=== PATIENT | female | born 1975 | race Two or more races ===

== ENCOUNTER 2022-12-17 10:06 | Emergency (ER) | payer BC, OTHER ==
[2022-12-17 10:20] VITALS: BP 121/75; BMI 26.2
[2022-12-17 11:09] VITALS: PULSE 93; RESP 14; TEMP 98.3
[2022-12-17 11:48] LABS: BASO % 0.1 % (0-2.0); EOS % 1.6 % (0-4.5); HEMATOCRIT 37.2 % (32.4-45.2); HEMOGLOBIN 12.5 GM/dL (10.7-15.3); LYMPH % 19.2 % (8-40); MCH 29.1 pg (25.7-33.7); MCHC 33.7 g/dl (32.0-36.0); MEAN CELL VOLUME 86.5 fl (80-96); MEAN PLT VOLUME 8.5 fl (7.5-11.1); MONO % 4.5 % (3.8-10.2); NEUT % 74.6 % (42.8-82.8); PLATELET COUNT 254 10^3/uL (134-434); RBC 4.31 M/mm3 (3.60-5.2); RDW 12.6 % (11.6-15.6); WHITE BLOOD COUNT 15.3 K/mm3 (4.0-10.0)
[2022-12-17 12:06] LABS: POTASSIUM 3.9 mmol/L (3.5-5.1)
[2022-12-17 12:09] LABS: ALBUMIN 3.6 g/dl (3.4-5.0); BLOOD UREA NITROGEN 12.5 mg/dL (7-18); CALCIUM 8.8 mg/dL (8.5-10.1)
[2022-12-17 12:12] LABS: CREATININE 0.7 mg/dL (0.55-1.3)
[2022-12-17 12:13] LABS: BILIRUBIN,TOTAL 0.3 mg/dL (0.2-1); TOT PROT 7.2 g/dl (6.4-8.2)
== END 2022-12-17 12:55 | disposition home or self-care (01) ==
LOC: JER 10:06
DX: R07.9 Chest pain, unspecified (principal)
CPT/HCPCS: 36415; 80053; 84484; 85025; 93005; 93010; 99284-25